=== PATIENT | female | born 1985 | race African-American/Black ===

== ENCOUNTER 2017-11-26 15:33 | Emergency (ER) | payer SELFPAY ==
[~2017-11-26] VITALS: Ht 165.1 cm; Wt 63.5 kg
[2017-11-26] MEDS ORDERED: Bacitracin Oint UD TOPIC ONE (16:00)
[2017-11-26] MEDS ORDERED: HYDROcodone/Acetamin 7.5/325 tab ORAL ONE (16:00)
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
[2017-11-26] MEDS ORDERED: LIDODERM700 M1 TOPIC (17:03)
[2017-11-26] MEDS ORDERED: TYLENOL EXTRA500 MG ORAL (17:03)
[2017-11-26] MEDS ORDERED: ROBAXIN500 MG PO (17:03)
[2017-11-26 17:22] VITALS: BP 111/71
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
== END 2017-11-26 17:22 | disposition home or self-care (01) ==
LOC: EDBD 15:33 → EMR 16:30
DX: S63.636A Sprain of interphalangeal joint of right little finger, initial encounter (principal); M62.838 Other muscle spasm; S00.81XA Abrasion of other part of head, initial encounter; V43.52XA Car driver injured in collision with other type car in traffic accident, initial encounter; Y93.9 Activity, unspecified; Y92.410 Unspecified street and highway as the place of occurrence of the external cause
CPT/HCPCS: 99284